=== PATIENT | male | born 1970 | race Caucasian/White ===

== ENCOUNTER → 2020-01-26 15:17 | Outpatient (BNVA) | payer OTHER, SELFPAY | PROVIDERS: Visit Provider Nurse Practitioner Family | DX: Z11.59 Encounter for screening for other viral diseases (principal) | CPT/HCPCS: 87635 ==

== ENCOUNTER 2021-03-21 11:17 | Emergency (ER) | payer OTHER, SELFPAY ==
[2021-03-21 12:26] VITALS: BP 159/90; PULSE 63; RESP 16; TEMP 36.9; O2SAT 97
--- NOTE | 2021-03-21 12:29 | XRR_ITS ---
PROCEDURE INFORMATION: Exam: XR Left Hand Exam date and time: 03/21/2021 12:29 PM Age: 50 years old Clinical indication: Left hand/wrist pain. Wrestling with kids 6 days ago. Pain to mid hand metacarpal area. TECHNIQUE: Imaging protocol: XR Left hand. Views: 3 or more views. COMPARISON: No relevant prior studies available. FINDINGS: Bones/joints: There is an oblique, mildly displaced fracture involving the proximal metadiaphysis of the 4th metacarpal. The scapholunate and lunotriquetral intervals are maintained. No chondrocalcinosis is seen. Old, healed fracture of the 3rd metacarpal. Mild degenerative changes at the triscaphe joint. Soft tissues: Dorsal soft tissue swelling. XR/XR hand LT min 3V* [id number] IMPRESSION: Oblique, mildly displaced fracture involving the proximal metadiaphysis of the 4th metacarpal with associated dorsal soft tissue swelling.
--- NOTE | 2021-03-21 12:29 | XRR_ITS ---
PROCEDURE INFORMATION: Exam: XR Left Wrist Exam date and time: 03/21/2021 12:29 PM Age: 50 years old Clinical indication: Left hand/wrist pain. Wrestling with kids 6 days ago. Pain to mid hand metacarpal area. TECHNIQUE: Imaging protocol: XR Left wrist. Views: 3 or more views. COMPARISON: No relevant prior studies available. FINDINGS: Bones/joints: There is an oblique, mildly displaced fracture involving the proximal metadiaphysis of the 4th metacarpal. The scapholunate and lunotriquetral intervals are maintained. No chondrocalcinosis is seen. Old, healed fracture of the 3rd metacarpal. Mild degenerative changes at the triscaphe joint. Soft tissues: Dorsal soft tissue swelling. XR/XR wrist LT min 3V* [id number] IMPRESSION: Oblique, mildly displaced fracture involving the proximal metadiaphysis of the 4th metacarpal with associated dorsal soft tissue swelling.
--- NOTE | 2021-03-21 12:56 | W.ED.EXTPRO ---
HPI - Extremity Problem General: Chief complaint: Extremity Injury, Upper Stated complaint: LEFT HAND PAIN Time Seen by Provider: 03/21/21 11:22 History of Present Illness: HPI Narrative: Patient complains about left hand pain since Thursday. Patient states he was wrestling with his kids and felt a pop in his hand is hurt since then. He has not wear splint since then. Complaint: extremity pain Onset (ago): day(s) Pain Consistency: constant Location: left and upper extremity Severity scale (1-10): 1 Quality: aching Relieving factors: immobilization Exacerbating factors: range of motion Associated symptoms: Reports no associated symptoms; Deny fever(s) or rash Review of Systems Const: Denies: fever(s) or chills Musc: Reports: extremity pain (Left hand) Skin/Breast: Denies: rash Physical Exam Const: COMMON NORMALS: no acute distress GENERAL APPEARANCE: cooperative Extremity: LEFT UPPER EXTREMITY: Yes hand & digits (Tenderness over her fourth metacarpal midshaft with swelling) Left hand and digits: Yes neurovascular exam (Intact) Psych: COMMON NORMALS: mental status grossly normal Course Vital Signs: Vital signs: Vital Signs Temperature 98.5 F 03/21/21 12:26 Pulse Rate 63 03/21/21 12:26 Respiratory Rate 16 03/21/21 12:26 Blood Pressure 159/90 03/21/21 12:26 Pulse Oximetry 97 03/21/21 12:26 Discharge Plan Discharge Patient Disposition: Home Clinical Impression: Fracture of metacarpal Qualifiers: Encounter type: initial encounter Metacarpal bone: fourth Fracture type: closed Metacarpal location: shaft Fracture alignment: displaced Laterality: left Qualified Code(s): S62.325A - Displaced fracture of shaft of fourth metacarpal bone, left hand, initial encounter for closed fracture Condition: Stable Prescriptions: New Celebrex 100 mg capsule 100 mg PO BID Qty: 20 RF: 0 No Action omeprazole 20 mg capsule,delayed release(DR/EC) 20 mg PO DAILY RF: 0 chlorthalidone 25 mg tablet 25 mg PO DAILY RF: 0 fluticasone propionate [Children's Flonase Allergy Rlf] 50 mcg/actuation spray,suspension 1 spray INTRANASAL DAILY RF: 0 Discharge Orders: Discharge ED (Routine); Ordered 03/21/21 Ordered By: Ector Kasey Discharge Diet: Usual diet Discharge Activity: Limit activity as instructed Patient Instructions: Hand Fracture (ED) Activity Restrictions/Additional Instructions: Follow-up with medical provider as directed. Take medications as prescribed. Return to the ER or your medical provider if condition worsens. Please read and understand discharge instructions. If any questions ask please. Wear splint until seen by orthopedics. Orthopedic will contact with appointment for next week. Coding Level of Care Code ED Digital Ad Trafficker for Daniela Hernandez
--- NOTE | 2021-03-21 13:34 | DCPLANNER ---
dairy department manager had message to schedule a follow up appointment for patient with ortho. dairy department manager called the ortho clinic, spoke with Nancy, gave clinic patients information. dairy department manager was told that patients information would be printed and reviewed. Clinic will call patient with appointment information.
--- NOTE | 2021-03-27 07:47 | DCPLANNER ---
Patient has a follow up appointment scheduled for , March 28, [address] 8:[address] Joseph at ortho. Clinic will call patient with appointment information.
--- NOTE | 2021-03-28 15:01 | DCPLANNER ---
Patient had a follow up appointment scheduled with ortho - patient did attend appointment.
== END 2021-03-21 14:32 | disposition home or self-care (01) ==
PROVIDERS: Emergency Provider Nurse Practitioner Family
DX: S62.325A Displaced fracture of shaft of fourth metacarpal bone, left hand, initial encounter for closed fracture (principal); X50.1XXA Overexertion from prolonged static or awkward postures, initial encounter
CPT/HCPCS: 73110; 73130

== ENCOUNTER → 2021-03-28 08:02 | Outpatient (BNVA) | payer OTHER, SELFPAY | PROVIDERS: Visit Provider Specialist | DX: S62.325A Displaced fracture of shaft of fourth metacarpal bone, left hand, initial encounter for closed fracture (principal); X58.XXXA Exposure to other specified factors, initial encounter | CPT/HCPCS: 73130 ==

== ENCOUNTER 2021-03-28 10:40 | Outpatient (CLI) | payer OTHER, SELFPAY | END 2021-03-28 10:41 | disposition home or self-care (01) | LOC: SPT 10:42 | PROVIDERS: Visit Provider Specialist | DX: Z46.89 Encounter for fitting and adjustment of other specified devices (principal); S62.325D Displaced fracture of shaft of fourth metacarpal bone, left hand, subsequent encounter for fracture with routine healing; X58.XXXD Exposure to other specified factors, subsequent encounter | CPT/HCPCS: 97760; L3984 ==

== ENCOUNTER 2024-03-08 07:07 | Outpatient (CLI) | payer OTHER, SELFPAY ==
--- NOTE | 2024-03-08 07:13 | USR_ITS ---
PROCEDURE INFORMATION: Exam: US Abdomen; Limited Exam date and time: 03/08/2024 7:22 AM Age: 53 years old Clinical indication: Abnormal findings; Abnormal lab test; Elevated liver enzymes; Additional info: Elevated lfts TECHNIQUE: Imaging protocol: Real time ultrasound of the abdomen with image documentation. Limited exam focused on the region of clinical interest. COMPARISON: No relevant prior studies available. FINDINGS: Liver: The liver demonstrates increased echogenicity with decreased visualization of periportal fat with moderate sound attenuation. The liver measures 17.9 cm in the midclavicular plane. No mass. Gallbladder: The gallbladder wall measures 2 mm. No gallstones. Biliary ducts: The common bile duct measures 3 mm. No ductal calculi as visualized. Pancreas: The pancreas is obscured by bowel gas. Right kidney: The right kidney measures 9.5 x 4.9 x 5.1 cm. The renal cortex measures 1.2 cm. Unremarkable. A brief color Doppler examination of the right kidney was performed showing normal color shifts. Aorta: The distal infrarenal abdominal aorta measures 1.6 cm. The remainder of the abdominal aorta is obscured by bowel gas. Inferior vena cava: Unremarkable IVC, as visualized. Portal venous: The main portal vein measures 8 mm. A brief color and pulsed Doppler examination of the portal vein was performed showing normal hepatopedal flow. 40.8 cm/sec. US/US abdomen limited [id number] IMPRESSION: 1. Limitations as above. 2. Fatty infiltration of the liver. 3. Mild hepatomegaly.
== END 2024-03-08 07:08 | disposition home or self-care (01) ==
LOC: RAD 07:08
PROVIDERS: PCP Family Medicine; Visit Provider Family Medicine
DX: K76.0 Fatty (change of) liver, not elsewhere classified (principal); R74.01 Elevation of levels of liver transaminase levels
CPT/HCPCS: 76705